=== PATIENT | female | born 1985 | race Caucasian/White ===

== ENCOUNTER 2019-12-18 19:24 | Emergency (ER) | payer SELFPAY ==
[~2019-12-18] VITALS: Ht 162.6 cm; Wt 73.4 kg
[2019-12-18 19:30] VITALS: BP 134/85
--- NOTE | 2019-12-18 19:56 | NUR ---
PT C/O TRANSIENT AND PROGRESSIVELY WORSENING RLQ PAIN FOR THE PAST 2 WEEKS, THAT RADIATES INTO R FLANK. +NAUSEA TODAY, NO EMESIS. INCREASED FATIGUE. PAIN WORSE WITH MOVEMENT. HISTORY OVARIAN CYST RUPTURE. URINE SAMPLE COLLECTED AND SENT. PT ATTACHED TO MONITOR, DENIES ANY BLANKETS. ERP IN TO SEE. CALL LIGHT IN REACH.
[2019-12-18 20:16] LABS: MICROSCOPIC INDICATED
--- NOTE | 2019-12-18 20:38 | NUR ---
Assumed care of pt at this time. Pt resting comfortably, monitors in place, call light within reach. Pt updated with poc, no questions at this time.
[2019-12-18 20:45] LABS: ANION GAP 7 mmol/L (5-15); BASOPHILS # (AUTO) 0.04 x10^3/uL (0-0.1); BASOPHILS % (AUTO) 1 % (0-1); CHLORIDE 111 mmol/L (98-107); CREATININE 1.11 mg/dL (0.55-1.02); EOSINOPHILS # (AUTO) 0.23 x10^3/uL (0-0.4); EOSINOPHILS % (AUTO) 3 % (1-7); LYMPHOCYTES # (AUTO) 2.35 x10^3/uL (1-3.4); LYMPHOCYTES % (AUTO) 35 % (22-44); MD NO; MEAN CORPUSCULAR HEMOGLOBIN 30.6 pg (27.0-34.8); MEAN CORPUSCULAR HGB CONC 33.2 g/dL (32.4-35.8); MEAN CORPUSCULAR VOLUME 92.2 fL (80-100); MONOCYTES # (AUTO) 0.44 x10^3/uL (0.2-0.8); MONOCYTES % (AUTO) 7 % (2-9); NEUTROPHILS # (AUTO) 3.75 x10^3/uL (1.8-6.8); NEUTROPHILS % (AUTO) 55 % (42-75); PLATELET COUNT 313 x10^3/uL (130-400); RED BLOOD COUNT 4.43 x10^6/uL (3.82-5.3); RED CELL DISTRIBUTION WIDTH 13.6 % (9.6-15.2)
--- NOTE | 2019-12-18 20:49 | NUR ---
Pt transported to ultrasound.
== END 2019-12-18 22:25 | disposition home or self-care (01) ==
LOC: ED 22:06
DX: R10.31 Right lower quadrant pain (principal); R10.2 Pelvic and perineal pain; R19.7 Diarrhea, unspecified; Z90.49 Acquired absence of other specified parts of digestive tract; Z86.711 Personal history of pulmonary embolism
CPT/HCPCS: 36415; 76830; 80048; 81001; 84703; 85025; 87086; 99284